=== PATIENT | male | born 1980 | race Caucasian/White ===

== ENCOUNTER 2017-04-29 19:56 | Emergency (ER) | payer OTHER ==
[2017-04-30 00:05] LABS: Hematocrit 40 % (42-52); Mean Corpuscular HGB Conc 35 g/dl (31-36); Mean Corpuscular Hemoglobin 32 pg (27-31); Mean Corpuscular Volume 93 fL (80-94); Mean Platelet Volume 10 um3 (7.4-10.4); Red Blood Count 4.33 10^6/ul (4.0-5.4); Red Cell Distribution Width 13 % (10.5-15)
[2017-04-30 00:22] LABS: Albumin 3.7 g/dL (3.2-5.2); BUN/Creatinine Ratio 17.3 (8-20); Calcium 9.2 mg/dL (8.6-10.3); EGFR African American 149.1 (>60); EGFR Non-African American 115.9 (>60); Globulin 3.1 g/dL (2-4); Potassium 3.6 mmol/L (3.5-5.0); Total Bilirubin 0.6 mg/dL (0.2-1.0); Total Protein 6.8 g/dL (6.4-8.9)
[2017-04-30] MEDS ORDERED: NS 0.9% 1000 ML* 3,000 ML IV ONE (00:38)
--- NOTE | 2017-04-30 00:52 | ED ---
Skin Complaint - HPI Summary HPI Summary: 37M presents with swelling to his scrotum since yesterday. He had a pimple near his testis that he noticed last night. He states that he left it alone and thought it would go away. Today he drove for 2 hours and started to feel pressure in his scrotum. He got home and realized that his scrotum had doubled in size. He denies any fever at home. He denies any drainage. He denies any history of STD or chance of STDs. He denies any penile discharge. He denies any history of genital infection or undescended testis. He denies any history of MRSA. He is a diabetic who is diet controlled. He denies any abdominal pain , dysuria, hematuria, frequency, or urgency. He denies any flank pain, n/v. - History of Current Complaint Chief Complaint: EDRashSkinAbscess Time Seen by Provider: 04/29/17 23:05 Stated Complaint: TESTICULAR SWELLING Pain Intensity: 5 - Allergy/Home Medications Allergies/Adverse Reactions: Allergies Allergy/AdvReac Type Severity Reaction Status Date / Time ARTHRITIS MED Allergy N/V Uncoded 04/02/14 08:34 PMH/Surg Hx/FS Hx/Imm Hx Endocrine/Hematology History: Reports: Hx Diabetes - TYPE 2, NO MEDS Denies: Hx Thyroid Disease Cardiovascular History: Denies: Hx Hypertension, Hx Pacemaker/ICD, Other Cardiovascular Problems/ Disorders Respiratory History: Denies: Hx Asthma, Hx Chronic Obstructive Pulmonary Disease (COPD), Other Respiratory Problems/Disorders GI History: Denies: Hx Ulcer, Other GI Disorders Musculoskeletal History: Denies: Other Musculoskeletal History Sensory History: Denies: Hx Contacts or Glasses, Hx Hearing Aid Opthamlomology History: Denies: Hx Contacts or Glasses Neurological History: Denies: Other Neuro Impairments/Disorders Psychiatric History: Reports: Hx Depression - HX OF NOT TREATED Denies: Hx Panic Disorder - Surgical History Surgery Procedure, Year, and Place: ACL Replacement LEFT KNEE, 1998 [facility] [place] MIDFOOT OPEN REDUCTION AND INTERNAL FIXATION 10/26/13 [facility] [place] Anesthesia Reactions: No - Immunization History Date of Tetanus Vaccine: unk Date of Influenza Vaccine: none Infectious Disease History: No Infectious Disease History: Denies: Hx Hepatitis, Hx Human Immunodeficiency Virus (HIV), Traveled Outside the [place] in Last 30 Days - Family History Known Family History: Positive: Diabetes - Social History Alcohol Use: Weekly Alcohol Amount: 20OZ LIQUOR 1X A WEEK Substance Use Type: Reports: None Smoking Status (MU): Current Every Day Smoker Amount Used/How Often: 1 PPD Length of Time of Smoking/Using Tobacco: 20 yrs Have You Smoked in the Last Year: Yes Review of Systems Negative: Chest Pain Negative: Shortness Of Breath Positive: Other - scrotal swelling Positive: Rash All Other Systems Reviewed And Are Negative: Yes Physical Exam Triage Information Reviewed: Yes Vital Signs On Initial Exam: Initial Vitals Temp Pulse Resp BP Pulse Ox 100.1 F 128 20 148/77 98 04/29/17 20:03 04/29/17 20:03 04/29/17 20:03 04/29/17 20:03 04/29/17 20:03 Vital Signs Reviewed: Yes Appearance: Positive: Well-Appearing Skin: Positive: Other - erythema and warmth to scrotum Head/Face: Positive: Normal Head/Face Inspection Eyes: Positive: Normal, EOMI, BURKE, Conjunctiva Clear ENT: Positive: Normal ENT inspection, Pharynx normal, TMs normal Respiratory/Lung Sounds: Positive: Clear to Auscultation, Breath Sounds Present Cardiovascular: Positive: Normal, RRR Abdomen Description: Positive: Nontender, Soft Bowel Sounds: Positive: Present Male Genital Exam: Positive: epididymal tenderness, scrotum tenderness (R), scrotum tenderness (L), other - edema to scrotum Psychiatric: Positive: Normal - Caroline Coma Scale Coma Scale Total: 15 Diagnostics - Vital Signs Vital Signs Temp Pulse Resp BP Pulse Ox 04/29/17 21:10 99.9 F 120 20 144/76 97 04/29/17 21:09 99.9 F 120 20 144/76 97 04/29/17 20:03 100.1 F 128 20 148/77 98 - Laboratory Lab Results: Lab Results 04/29/17 04/29/17 04/29/17 Range/Units 23:40 23:40 23:40 WBC 20.0 H (3.5-10.8) 10^3/ul RBC 4.33 (4.0-5.4) 10^6/ul Hgb 14.0 (14.0-18.0) g/dl Hct 40 L (42-52) % MCV 93 (80-94) fL MCH 32 H (27-31) pg MCHC 35 (31-36) g/dl RDW 13 (10.5-15) % Plt Count 183 (150-450) 10^3/ul MPV 10 (7.4-10.4) um3 Neut % (Auto) 75.6 (38-83) % Lymph % (Auto) 15.4 L (25-47) % [place] % (Auto) 5.7 (1-9) % Eos % (Auto) 2.7 (0-6) % Baso % (Auto) 0.6 (0-2) % Absolute Neuts (auto) 15.2 H (1.5-7.7) 10^3/ul Absolute Lymphs (auto) 3.1 (1.0-4.8) 10^3/ul Absolute Monos (auto) 1.1 H (0-0.8) 10^3/ul Absolute Eos (auto) 0.5 (0-0.6) 10^3/ul Absolute Basos (auto) 0.1 (0-0.2) 10^3/ul Absolute Nucleated RBC 0 10^3/ul Nucleated RBC % 0 Sodium 130 L (133-145) mmol/L Potassium 3.6 (3.5-5.0) mmol/L Chloride 100 L (101-111) mmol/L Carbon Dioxide 24 (22-32) mmol/L Anion Gap 6 (2-11) mmol/L BUN 13 (6-24) mg/dL Creatinine 0.75 (0.67-1.17) mg/dL Est GFR ( Amer) 149.1 (>60) Est GFR (Non-Af Amer) 115.9 (>60) BUN/Creatinine Ratio 17.3 (8-20) Glucose 366 H (70-100) mg/dL Lactic Acid 1.1 (0.5-2.0) mmol/L Calcium 9.2 (8.6-10.3) mg/dL Total Bilirubin 0.60 (0.2-1.0) mg/dL AST 11 L (13-39) U/L ALT 17 (7-52) U/L Alkaline Phosphatase 60 (34-104) U/L C-React Prot High Sens 159.31 mg/L Total Protein 6.8 (6.4-8.9) g/dL Albumin 3.7 (3.2-5.2) g/dL Globulin 3.1 (2-4) g/dL Albumin/Globulin Ratio 1.2 (1-3) Result Diagrams: 04/29/17 23:40 04/29/17 23:40 Lab Statement: Any lab studies that have been ordered have been reviewed, and results considered in the medical decision making process. - Ultrasound No standard instances Ultrasound Interpretation: Positive (See Comments) - thickened vascular and edematous soft tisse inferior to both testicles bilterally. portions of abnormal soft tissue may represnt epididymis. Ultrasound Interpretation Completed By: Radiologist Course/Dx - Course Course Of Treatment: 37M presents with swelling to his scrotum since yesterday. He had a pimple near his testis that he noticed last night. He states that he left it alone and thought it would go away. Today he drove for 2 hours and started to feel pressure in his scrotum. He got home and realized that his scrotum had doubled in size. He denies any fever at home. He denies any drainage. He denies any history of STD or chance of STDs. He denies any penile discharge. He denies any history of genital infection or undescended testis. He denies any history of MRSA. He is a diabetic who is diet controlled. He denies any abdominal pain, dysuria, hematuria, frequency, or urgency. He denies any flank pain, n/v. on exam has diffuse edema and erythema of scrotum. is diffusely tender. over epididymitis is tender but hard to tell if is the skin or the epididymitis cause the pain. u/s shows diffuse swelling and enlargement epididymitis so could be epididymitis vs cellulitis. gave dose of zosyn and vancomycin. talked with dr ordonez who recommend patient be d/c with antibiotics to cover cellulitis and epididymitis even though wbc 20. so will do levofloxacin for epididymitis and doxcycline so more MRSA coverage. explain if things got worst to return to ED. otherwise should follow up with primary. patient understands and agrees with plan. - Differential Diagnoses - Skin Complaint Differential Diagnoses: Cellulitis, Other - epididymitis - Diagnoses Provider Diagnoses: Cellulitis, scrotum - Physician Notifications Discussed Care Of Patient With: dr ordonez Time Discussed With Above Provider: 01:00 - does not need admission, gave antibiotics and follow up with primary Discharge - Discharge Plan Condition: Good Disposition: HOME Prescriptions: DOXYcycline CAP(*) [DOXYcycline 100MG CAP(*)] 100 mg PO BID #20 cap Levofloxacin TAB* [Levaquin 750 MG TAB*] 750 mg PO DAILY #10 tab oxyCODONE/Acetamin 5/325 MG* [Percocet 5/325 TAB*] 1 tab PO Q6H PRN #12 tab MDD 4 PRN Reason: Pain Patient Education Materials: Cellulitis (ED), Epididymitis (ED) Referrals: Elizabeth Ashton MD [Primary Care Provider] - Additional Instructions: You are being treated for cellulitis and epididymitis Take levofloxacin once a day for 10 days Take doxycycline twice a day for 10 days Follow up with primary within 2 days Return to ED if swelling gets worst after 2 days on antibiotics, develop persistent fevers, or any new or worsening symptoms
[2017-04-30] MEDS ORDERED: Vancomycin(*) 1,000 MG VIAL IVPB SCH (01:00)
[2017-04-30] MEDS ORDERED: oxyCODONE/Acetamin 5/325 MG* TAB PO ONE ×2 (01:53→02:52)
[2017-04-30] MEDS ORDERED: Vancomycin(*) 2,000 MG in NS 0.9% 500 ML BAG* 500 ML IVPB ONE (02:00)
[2017-04-30 05:21] VITALS: BP 163/83
--- NOTE | 2017-04-30 08:04 | RAD ---
Indication: Bilateral testicular swelling. Comparison: No relevant prior exams available on the [facility] PACS for comparison. Technique: Scrotal ultrasound. Report: 4.5 x 1.6 x 2.9 cm RIGHT testicle demonstrates normal echotexture and vascularity. 0.5 x 0.5 x 0.5 cm cyst at the superficial superior pole of the RIGHT testicle at the level of the mediastinum testis is most consistent with a spermatocele. There are no complex elements to favor a malignant lesion. 4.0 x 2.0 x 2.4 cm LEFT testicle demonstrates normal echotexture and vascularity. No LEFT testicular lesions evident. 0.8 x 1.1 cm RIGHT epididymis head. The RIGHT epididymis is hyperemic. Small volume of RIGHT scrotal fluid. Hypoechoic tissue inferior to the RIGHT testicle is most consistent with gubernaculum. Negative for varicocele. 1.0 x 0.8 cm LEFT testicular head. The LEFT epididymis is hyperemic. Negative for hydrocele or varicocele. Soft tissue visualized inferior to the testicle is most consistent with gubernaculum. IMPRESSION: 1. Hyperemic epididymis bilaterally; consider epididymitis. 2. Low suspicion 0.5 cm diameter superficial superior pole RIGHT testicular cyst at the level of the mediastinum testis for which reassessment with ultrasound in 6 months time is suggested to document stability.
== END 2017-04-30 04:30 | disposition home or self-care (01) ==
LOC: ED 19:56
DX: N49.2 Inflammatory disorders of scrotum (principal); E11.9 Type 2 diabetes mellitus without complications
CPT/HCPCS: 36415; 76870; 80053; 83605; 85025; 86141; 87040; 87491; 87591; 96360; 96374; 96375; 99283; A9270-GY; J2543; J3370